=== PATIENT | female | born 1950 ===

== ENCOUNTER 2018-09-01 10:11 | Day surgery (SDC) | payer MEDICARE, MEDICAID ==
[2018-09-01 10:56] VITALS: O2SAT 100
[2018-09-01] MEDS ORDERED: Lactated Ringer's 500 ML IV ONE (13:54)
[2018-09-01] MEDS ORDERED: Propofol 10 mg/ml Inj (20 ML) ONE ×2 (13:57→14:19)
[2018-09-01 14:51] VITALS: TEMP 97.3
[2018-09-01 15:35] VITALS: BP 121/67; PULSE 65; RESP 13
== END 2018-09-01 15:30 | disposition home or self-care (01) ==
LOC: C.ENDO 10:11
PROVIDERS: ATTEND Internal Medicine Gastroenterology
DX: Z12.11 Encounter for screening for malignant neoplasm of colon (principal); D12.2 Benign neoplasm of ascending colon; D12.0 Benign neoplasm of cecum; D12.5 Benign neoplasm of sigmoid colon
CPT/HCPCS: 45385; 88305; J2704; J3010; J7120

== ENCOUNTER 2018-10-04 06:34 | Emergency (ER) | payer MEDICARE, MEDICAID ==
[2018-10-04 07:08] VITALS: O2SAT 100
[2018-10-04] MEDS ORDERED: Iohexol 240 (50 ml) PO STA (07:21)
[2018-10-04] MEDS ORDERED: Iohexol 240 (50 ml) ONE (07:29)
[2018-10-04] MEDS ORDERED: Morphine 4 MG/ML VIAL ONE (07:30)
[2018-10-04 07:42] LABS: BASO % 0.5 % (0.0-2.0); EOS % 0.3 % (0.0-4.0); HEMOGLOBIN 12.8 g/dL (11.0-16.0); LYMPH % 24.9 % (20.0-40.0); MEAN CELL VOLUME 86.6 fL (81.0-99.0); MEAN CORPUSCULAR HEMOGLOBIN 28.1 pg (27.0-31.0); MEAN CORPUSCULAR HGB CONC 32.5 g/dL (33.0-37.0); MEAN PLATELET VOLUME 8.6 fL (7.2-11.7); MONO # 0.7 K/uL (0.0-0.8); MONO % 8.4 % (0.0-10.0); NEUT # 5.4 K/uL (1.8-7.0); NEUT % 65.9 % (50.0-75.0); NRBC % 0.1 % (0.0-2.0); RBC 4.56 Mil/uL (3.80-5.20); RED CELL DISTRIBUTION WIDTH 14.4 % (11.5-14.5); WHITE BLOOD COUNT 8.2 K/uL (4.8-10.8)
--- NOTE | 2018-10-04 07:53 | C.PDOC ---
History Of Present Illness 68 y/o female presents to the ER c/o having no bm x 4 days and abdominal pain and rectal pain x 2 days.Patient states that she did not use any medications. Patient denies having nausea, vomiting, fever, and chills. Time Seen by Provider: 10/04/18 07:12 Chief Complaint (Nursing): Abdominal Pain History Per: Patient History/Exam Limitations: no limitations Onset/Duration Of Symptoms: Days Current Symptoms Are (Timing): Still Present Severity: Moderate Associated Symptoms: Constipation. denies: Fever, Chills, Nausea, Vomiting Past Medical History Reviewed: Historical Data, Nursing Documentation, Vital Signs Vital Signs: Last Vital Signs Temp 98.2 F 10/04/18 06:43 Pulse 80 10/04/18 07:46 Resp 20 10/04/18 07:46 BP 152/99 H 10/04/18 07:46 Pulse Ox 100 10/04/18 07:46 - Medical History PMH: No Chronic Diseases Denies: Chronic Kidney Disease Other Surgeries: Hysterectomy Family History: States: No Known Family Hx - Social History Hx Alcohol Use: No Hx Substance Use: No - Immunization History Hx Tetanus Toxoid Vaccination: No Hx Influenza Vaccination: No Hx Pneumococcal Vaccination: No Review Of Systems Constitutional: Negative for: Fever, Chills Gastrointestinal: Positive for: Abdominal Pain, Constipation, Rectal Pain. Negative for: Nausea, Vomiting Physical Exam - Physical Exam Appears: In Acute Distress, Other (moaning) Skin: Normal Color, Warm, Dry Head: Atraumatic, Normacephalic Eye(s): bilateral: Normal Inspection Oral Mucosa: Moist Cardiovascular: Rhythm Regular, No Murmur Respiratory: Normal Breath Sounds, No Rales, No Rhonchi, No Wheezing Gastrointestinal/Abdominal: Bowel Sounds (+ bowel sounds), Soft, Tenderness (diffuse tenderness), No Guarding, No Rebound Rectal: Hemorrhoids (left sided hemorrrhoid at 10 o'clock position), No Mass (palpable mass ), Tenderness (diffuse tenderness), Other (small amount of soft brown stool) Neurological/Psych: Oriented x3, Normal Speech, Normal Cognition ED Course And Treatment - Laboratory Results Result Diagrams: 10/04/18 07:33 10/04/18 07:33 ECG: Interpreted By Me, Viewed By Me ECG Rhythm: Sinus Tachycardia Rate From EC O2 Sat by Pulse Oximetry: 100 (RA) Pulse Ox Interpretation: Normal - CT Scan/US CT- Abd & Pelv. Other Rad Studies (CT/US): Read By Radiologist, Radiology Report Reviewed CT/US Interpretation: Impression: 1. Marked fecal retention and distension of the rectum with prominent focal thickening of the rectal wall. These findings may represent a stercoral colitis. This may be related to acute infectious and or inflammatory processes. Clinical correlation. 2. Severe right renal hydroureteronephrosis within obstructing 6 millimeter calculus in the distal right ureter. Atrophic right kidney with cortical parenchymal thinning. Clini carrington correlation. 3. Small bowel and fat containing midline abdominal wall hernia. Additional findings as above. Medical Decision Making Medical Decision Making: Plan: --Labs --UA --CT - Abd & Pelv. --Morphine IV 1239 pt with large amt stool on ct; given enema in 2 parts and had 2 large bm. pt wstill with rectal discomfort, has [address] scan showss some rectal wall thickening; will refer to surgeon for further eval. pt also with hydronephrosis and right 6 mm uvj stone; pt has appt wit urology tomorrow; given copy of ct results to bring to urologist. d/c with miralax and anusol. Disposition Counseled Patient/Family Regarding: Studies Performed, Diagnosis, Need For Followup, Rx Given - Disposition Referrals: Sandro Westfall MD [Staff Provider] - Disposition: HOME/ ROUTINE Disposition Time: 12:45 Condition: GOOD Additional Instructions: Sigue con tu urlogo maana. Lleve maurilio copia de los resultados de la prueba de orina y de la exploracin del trupti con carpenter mdico urlogo. Sigue con el Dr. Westfall los prximos lisa. Recomiendo beber ms agua y alimentos ricos en fibra. Seguimiento con el cirujano para el dolor rectal. Hines miralax segn lo p rescrito. Vuelva a la eleni de emergencias por cualquier sntoma peor. Follow up with your urologist tomorrow. Bring copy of urine test and cat scan results with your to show urologist. Follow up with Dr Westfall next few days. Recommend drinking more water and high fiber foods. Follow up with surgeon for rectal pain. Take miralax as prescribed.Return to ER for any worse symptoms. Prescriptions: Hydrocortisone 2.5% (Rectal) [Anusol-HC] 30 applic HI BID #1 tube Polyethylene Glycol 3350 [Miralax] 17 gm PO DAILY #1 bottle Instructions: High Fiber Diet, Constipation, Adult (DC), Kidney Stones (DC) Forms: Gen Discharge Inst Gambian, [facility] (Gambian) Print Language: KYRGYZ - Clinical Impression Clinical Impression: Kidney stone on right side - PA / SPINNING FRAME TENDER / Resident Statement MD/DO has reviewed & agrees with the documentation as recorded. - Scribe Statement The provider has reviewed the documentation as recorded by the Vivian Hope Provider Attestation All medical record entries made by the Vivian were at my direction and personally dictated by me. I have reviewed the chart and agree that the record accurately reflects my personal performance of the history, physical exam, medical decision making, and the department course for this patient. I have also personally directed, reviewed, and agree with the discharge instructions and disposition.
[2018-10-04 07:56] LABS: ALB/GLOB RATIO 1.3 (1.0-2.1); ALBUMIN 4.7 g/dL (3.5-5.0); ALT/SGPT 19 U/L (9-52); AST/SGOT 28 U/L (14-36); BLOOD UREA NITROGEN 15 mg/dL (7-17); CALCIUM 9.7 mg/dl (8.6-10.4); GFR NON-AFRICAN AMERICAN 55; LIPASE 102 U/L (23-300)
[2018-10-04] MEDS ORDERED: Iodixanol 320 MG/ML 100 ML BOTTLE IV ONE (08:26)
[2018-10-04 08:28] LABS: SQUAMOUS EPITHIAL < 1 /hpf (0-5); URINE BACTERIA RARE (<OCC); URINE BILIRUBIN NEGATIVE (NEGATIVE); URINE BLOOD 1+ (NEGATIVE); URINE CLARITY Clear (Clear); URINE COLOR Yellow (YELLOW); URINE GLUCOSE (UA) NORMAL (Normal); URINE LEUKOCYTE ESTERASE TRACE Leu/uL (Negative); URINE PROTEIN NEGATIVE (NEGATIVE); URINE UROBILINOGEN NORMAL mg/dL (0.2-1.0)
--- NOTE | 2018-10-04 10:08 | CT ---
CT abdomen and pelvis HISTORY: Abdominal pain. TECHNIQUE: Multiple contiguous axial images were performed through the abdomen and pelvis with the use of intravenous contrast. Subsequently, sagittal and coronal reformatted images were obtained. This CT exam was performed using one or more of the following dose reduction techniques: Automated exposure control, adjustment of the mA and/or kV according to patient size, and/or use of iterative reconstruction technique. Findings: Scattered atelectasis within the visualized lung warren. No pleural or pericardial effusion. Fatty infiltration of the liver. Gallbladder is preserved. Spleen is preserved. Adrenal glands are preserved. Pancreas is preserved. Upper abdominal bowel is preserved. Right kidney: Atrophic with a prominently thinned parenchymal cortex. Scattered low-attenuation lesions for example an upper pole partially exophytic cystic lesion measures 1.3 centimeters demonstrating a Hounsfield unit attenuation of 12. Severe hydroureteronephrosis within obstructing 6 millimeter calculus in the distal right ureter. Left Kidney: Punctate hypodensities scattered throughout the left kidney, too small to adequately characterize. Lower pole 3 millimeter nonobstructive calculus. Urinary bladder is grossly preserved. Marked fecal retention in the rectum with focal thickening of the rectal wall. These findings may represent a stercoral colitis. Clinical correlation. Underdistended descending colon. Fecal retention and fluid seen within the right hemicolon. Appendix not well visualized. Small bowel and fat containing midline abdominal wall hernia. Few shotty para-aortic and inguinal lymph nodes. Few shotty mesenteric lymph nodes. Degenerative changes in the spine. Impression: 1. Marked fecal retention and distension of the rectum with prominent focal thickening of the rectal wall. These findings may represent a stercoral colitis. This may be related to acute infectious and or inflammatory processes. Clinical correlation. 2. Severe right renal hydroureteronephrosis within obstructing 6 millimeter calculus in the distal right ureter. Atrophic right kidney with cortical parenchymal thinning. Clinical correlation. 3. Small bowel and fat containing midline abdominal wall hernia. Additional findings as above.
[2018-10-04 13:06] VITALS: BP 154/88; PULSE 99; RESP 18; TEMP 99
--- NOTE | 2018-10-05 11:46 | CARD ---
APPROVED REPORT Date of service: 10/04/2018 EKG Measurement Heart [id number] <Conclusion> Sinus tachycardia Possible Left atrial enlargement Left ventricular hypertrophy Abnormal ECG
== END 2018-10-04 13:06 | disposition home or self-care (01) ==
LOC: C.ER 06:34
DX: N13.2 Hydronephrosis with renal and ureteral calculous obstruction (principal); K64.4 Residual hemorrhoidal skin tags
CPT/HCPCS: 74177; 80053; 81001; 83690; 85025; 93005; 96374; 99285; J2270; Q9966; Q9967

== ENCOUNTER 2018-10-06 10:33 | Outpatient (CLI) | payer MEDICARE, MEDICAID | END 2018-10-06 10:34 | disposition home or self-care (01) | LOC: C.PAT 10:33 ==

== ENCOUNTER 2018-10-11 11:18 | Day surgery (SDC) | payer MEDICARE, MEDICAID ==
[2018-10-06 10:56] VITALS: BMI 28.3
[2018-10-11] MEDS ORDERED: Ciprofloxacin 400mg/200ml D5W 400 MG/200 ML BAG IVPB ONE (15:38)
[2018-10-11] MEDS ORDERED: Gentamicin 80 mg in 0.9% NS 160 MG/200 ML BAG IVPB ONE (15:39)
[2018-10-11] MEDS ORDERED: Lidocaine 2% Jelly (Uro-Jet) ONE (15:40)
[2018-10-11] MEDS ORDERED: Iohexol 240 (50 ml) ONE (15:40)
[2018-10-11] MEDS ORDERED: Midazolam 2 MG/2 ML VIAL ONE (15:48)
[2018-10-11] MEDS ORDERED: Propofol 10 mg/ml Inj (20 ML) ONE (15:48)
--- NOTE | 2018-10-11 16:31 | PCM.SURG1 ---
Surgeon's Initial Post Op Note - Surgeon's Notes Surgeon: Flaquito Electric Locomotive Firer/Fireman: MAYA Type of Anesthesia: General LMA Anesthesia Administered By: STAFF Pre-Operative Diagnosis: RIGHT HYDRO URETER rIGHT MID URETEAL CALCULI Operative Findings: IMPACTED URETERAL CALCULI rIGHT W hYDRO Post-Operative Diagnosis: SAME Operation Performed: URETEROSCOPY AND LASER LITHOTRIPSY Specimen/Specimens Removed: NA Estimated Blood Loss: EBL {In ML}: 0 Blood Products Given: N/A Drains Used: No Drains Post-Op Condition: Good Date of Surgery/Procedure: 10/11/18 Time of Surgery/Procedure: 16:33
[2018-10-11] MEDS ORDERED: HYDROmorphone 0.5 mg/0.5 ml ISec IVP PRN (17:03)
[2018-10-11] MEDS ORDERED: HYDROmorphone 0.5 mg/0.5 ml ISec ONE (17:15)
--- NOTE | 2018-10-11 17:20 | RAD ---
Date of service: 10/11/2018 PROCEDURE: Intraoperative Fluoroscopy. HISTORY: URETERAL STONE/RIGHT HYDRONEPHROSISI FINDINGS: Fluoroscopic assistance was provided for cystogram and right stent placement. Please refer to the operative report from TAM Garcia. Total fluoroscopic time (continuous mode) utilized during the procedure 38.9 seconds. Dose report: DLP [id number] (mGy/m2)
[2018-10-11 18:00] VITALS: O2SAT 100
[2018-10-11 18:07] VITALS: PULSE 60
[2018-10-11 18:28] VITALS: RESP 16
[2018-10-11 18:31] VITALS: BP 133/70; TEMP 97.5
--- NOTE | 2018-10-12 03:47 | OP ---
PROCEDURE DATE: 10/11/2018 PREOPERATIVE DIAGNOSES: Right hydronephrosis secondary to impacted lower ureteral calculi. POSTOPERATIVE DIAGNOSES: Right hydronephrosis secondary to impacted lower ureteral calculi. PROCEDURES: Cystoscopy and insertion of double-J stent, ureteroscopy, and laser lithotripsy. FINDINGS: Lower ureteral calculi with obstruction. DESCRIPTION OF PROCEDURE: The procedure is as follows: Prior to the procedure, a detailed informed consent was obtained from the patient. She is aware of all risks and complications of this procedure. She was brought into the room and draped and prepped in the usual manner. A time-out was taken while the x-rays, films, and reports were reviewed, confirming right-sided stone. The patient was cystoscoped with #21 Storz panendoscope. The right ureteral orifice was localized, and with fluoroscopic control, the guidewire was manipulated above the stone and into the renal pelvis. After this being done, the cystoscope was backed out, and ureteroscope was passed over a second guidewire. This guidewire was passed up to the stone, but could not be pass it because of obstruction. The guidewire was removed. The stone was visualized. The laser fiber was inserted into scope and passed up to the stone. However, there was minimal visualization of the stone due to the tortuosity of the ureter. The attempt was made to fragment the stone, but this was unsuccessful. It was likely to ban the procedure and proceed with ESWL another day. The scope was backed out. Now with the original guidewire, a 6-Lithuanian variable length stent was passed with some manipulation above the stone and into the renal pelvis and positioned properly. The patient tolerated this very well. She was sent to recovery room in good condition. She will be given a prescription for Cipro and will follow up in our office on to be scheduled for lithotripsy after appropriate medical clearance. Seun Fenton MD
== END 2018-10-11 18:36 | disposition home or self-care (01) ==
LOC: C.SDS 11:18
PROVIDERS: ATTEND Urology
DX: N13.2 Hydronephrosis with renal and ureteral calculous obstruction (principal)
CPT/HCPCS: 52356; C1758; C1769; C2617; J0744; J1170; J1580; Q9966

== ENCOUNTER 2018-11-02 10:45 | Outpatient (CLI) | payer MEDICARE, MEDICAID | END 2018-11-02 10:46 | disposition home or self-care (01) | LOC: C.RADIC 10:45 ==

== ENCOUNTER 2018-11-15 08:57 | Day surgery (SDC) | payer MEDICARE, MEDICAID ==
[2018-10-06 10:56] VITALS: BMI 28.3
[2018-11-15] MEDS ORDERED: Propofol 10 mg/ml Inj (20 ML) ONE (12:01)
[2018-11-15] MEDS ORDERED: Midazolam 2 MG/2 ML VIAL ONE (12:01)
[2018-11-15] MEDS ORDERED: Lidocaine 2% Jelly (Uro-Jet) ONE (12:02)
[2018-11-15] MEDS ORDERED: Iohexol 240 (50 ml) ONE (12:02)
[2018-11-15] MEDS ORDERED: Ciprofloxacin 400mg/200ml D5W 400 MG/200 ML BAG IVPB ONE (12:03)
[2018-11-15] MEDS ORDERED: Gentamicin 80 mg in 0.9% NS 160 MG/200 ML BAG IVPB ONE (12:03)
[2018-11-15] MEDS ORDERED: Lidocaine Hydrochloride 5 ML INJ ONE (12:04)
--- NOTE | 2018-11-15 12:46 | PCM.SURG1 ---
Surgeon's Initial Post Op Note - Surgeon's Notes Surgeon: Jossy Cold Roll Catcher: carla Type of Anesthesia: General LMA Anesthesia Administered By: staff Pre-Operative Diagnosis: Right ureteral stent possible left uvj calculi Operative Findings: Right stent no left ueteral calculi Post-Operative Diagnosis: same as po Operation Performed: Cysto removal of right stent left retrogade Specimen/Specimens Removed: stent Estimated Blood Loss: EBL {In ML}: 0 Blood Products Given: N/A Drains Used: No Drains Post-Op Condition: Good Date of Surgery/Procedure: 11/15/18 Time of Surgery/Procedure: 12:47
[2018-11-15] MEDS ORDERED: HYDROmorphone 0.5 mg/0.5 ml ISec IVP PRN (13:04)
[2018-11-15 13:21] VITALS: O2SAT 100
[2018-11-15 14:10] VITALS: RESP 18
[2018-11-15 15:43] VITALS: BP 96/60; PULSE 69; TEMP 97.5
--- NOTE | 2018-11-15 19:34 | OP ---
PROCEDURE DATE: 11/15/2018 PREOPERATIVE DIAGNOSIS: Right ureteral stent, status post lithotripsy and possible left ureterovesical junction calculi. POSTOPERATIVE DIAGNOSIS: Right ureteral stent and no evidence of ureteral calculi. DESCRIPTION OF PROCEDURE: The procedure is as follows: The patient signed a detailed informed consent. After being apprised of all risks, complications, limitations of this procedure, she accepted the risk and was brought into the room and draped and prepped in the usual manner. A time-out was taken according to the rules and regulations of [facility]. A fluoroscopy was done and showed the calcification in a similar position to the calcification noted on the preop KUB consistent with possible left UVJ calculi. There were no stones seen over the course of the right ureter and the stent was in good position on the right renal unit. The patient was cystoscoped with a #21 Storz panendoscope. The right stent was removed and was sent for pathologic analysis. The left ureteral orifice was cannulated with a Sensor-tip guidewire which was passed up to the renal pelvis. On fluoroscopy, this was well away from the calcification which had been noted on the previous fluoroscopy indicating that it was not a ureteral stone. The guidewire was removed. The patient tolerated the procedure well. She will be discharged on Keflex and Indocin. Follow up in our office in one month. Seun Fenton MD
--- NOTE | 2018-11-16 17:11 | RAD ---
Date of service: 11/15/2018 PROCEDURE: Intraoperative Fluoroscopy. HISTORY: URETHRA CALCULI FINDINGS: Fluoroscopic assistance was provided. Fluoroscopy time = 4.6 sec. Radiation dose = 0.79574 mGy-cm. Please refer to the operative report from TAM Garcia.
== END 2018-11-15 14:45 | disposition home or self-care (01) ==
LOC: C.SDS 08:57
PROVIDERS: ATTEND Urology
DX: Z46.6 Encounter for fitting and adjustment of urinary device (principal)
CPT/HCPCS: 52310; 88300; C1769; C9738; J0744; J1580; Q9966